=== PATIENT | female | born 1960 | race Caucasian/White ===

== ENCOUNTER 2023-05-07 10:39 | Emergency (ER) | payer OTHER ==
[~2023-05-07] VITALS: Ht 193 cm; Wt 131.5 kg
[2023-05-07 10:40] VITALS: BP_SYST 151; PULSE 114; RESP 18; TEMP 98; O2SAT 94
[2023-05-07] MEDS ORDERED: SIMETHICONE 40 MG/0.6 ML ML ONE (12:00)
[2023-05-07] MEDS ORDERED: MEPERIDINE 100 MG INJ. 100 MG/ML VIAL ONE (12:01)
[2023-05-07] MEDS ORDERED: MIDAZOLAM HCL 5 MG/5 ML VIAL ONE (12:01)
[2023-05-07 13:09] VITALS: BP_SYST 151; PULSE 114; RESP 18; TEMP 98; O2SAT 94
== END 2023-05-07 12:41 | disposition home or self-care (01) ==
LOC: SED 10:39
DX: T18.9XXA Foreign body of alimentary tract, part unspecified, initial encounter (principal); Z88.0 Allergy status to penicillin; Z79.899 Other long term (current) drug therapy; W44.8XXA Other foreign body entering into or through a natural orifice, initial encounter; Y93.89 Activity, other specified; Y92.89 Other specified places as the place of occurrence of the external cause; Y99.8 Other external cause status
CPT/HCPCS: 99284; 71046; 74018; J2250; J2175; 43247